=== PATIENT | female | born 1950 | race Caucasian/White ===

== ENCOUNTER → 2018-01-05 | Outpatient (CLI) | payer BC ==
[~2018-01-05] MED LIST: HYDR-4226 PO
--- NOTE | 2018-01-05 13:08 | Diagnostic Imaging Report ---
Indication: Routine screening. Comparison is made with prior mammograms from 01/01/2017 and 12/29/2015. 2-D and 3-D bilateral screening mammography was performed with CAD. Both breasts are heterogeneously dense, limiting the sensitivity of mammography. Intraparenchymal lymph node in the outer left breast appears stable. No new mass or malignant-appearing microcalcifications are seen. The axillae are unremarkable. Impression: BI-RADS category 2 No mammographic features suspicious for malignancy are identified. ACR BI-RADS Category 2: Benign findings. Result letter will be mailed to the patient. Note: At least 10% of breast cancer is not imaged by mammography. Dictated by: Dictated on workstation # [id number]
== END ==
LOC: RAD 08:05
PROVIDERS: ATTEND Nurse Practitioner Family
DX: Z12.31 Encounter for screening mammogram for malignant neoplasm of breast (principal)
CPT/HCPCS: 77067

== ENCOUNTER 2018-01-12 16:05 | Emergency (ER) | payer BC ==
[~2018-01-12] VITALS: Ht 167.6 cm; Wt 65.8 kg
--- NOTE | 2018-01-12 16:24 | ED Lower Extremity ---
General Stated Complaint: L LEG PAIN Source: patient Exam Limitations: no limitations History of Present Illness Date Seen by Provider: Jan 12, 2018 Time Seen by Provider: 16:22 Initial Comments To ER for bruit vehicle from home with reports of left knee pain. This began a few days ago without any known injury. She denies any swelling but the pain became rather severe today, especially worse with bearing weight. Today she also notices increased pain and a tight sensation when she flexes the knee. The sensation of tightness in the back of the knee. She does not notice any swelling. No history of this. Onset: just prior to arrival Severity: moderate Pain/Injury Location: left leg, left knee Method of Injury: unknown Modifying Factors: Worse With Movement Allergies and Home Medications Allergies Coded Allergies: No Known Drug Allergies (Unverified , 08/24/13) Home Medications Hydrocodone/Acetaminophen 1 Each Tablet, 1 EACH PO Q6H PRN for PAIN-MODERATE Prescribed by: PAULA RAMOS on 01/12/18 1700 Patient Home Medication List Home Medication List Reviewed: Yes Review of Systems Constitutional: see HPI EENTM: see HPI Respiratory: no symptoms reported Cardiovascular: no symptoms reported Genitourinary: see HPI Musculoskeletal: see HPI Skin: no symptoms reported Psychiatric/Neurological: No Symptoms Reported Past Fzvihej-Udjjnb-Dlsaaw Hx Patient Social History Recent Foreign Travel: No Contact w/Someone Who Travel: No Physical Exam Vital Signs Vital Signs - First Documented 01/12/18 16:27 Pulse 80 Resp 20 B/P (MAP) 138/90 (106) Pulse Ox 99 O2 Delivery Room Air Capillary Refill : Height, Weight, BMI Height: 5'6.00" Weight: 146lbs. oz. 66.943224sz; BMI Method: General Appearance: WD/WN, no apparent distress HEENT: PERRL/EOMI, normal ENT inspection Neck: non-tender, full range of motion Respiratory: no respiratory distress, no accessory muscle use Hips: bilateral hip non-tender, bilateral hip normal inspection, bilateral hip normal range of motion Legs: bilateral leg non-tender, bilateral leg normal inspection, bilateral leg normal range of motion Knees: left knee pain, left knee other (no palpable swelling, no deformity. No tenderness to palpation.) Ankles: bilateral ankle non-tender, bilateral ankle normal inspection, bilateral ankle normal range of motion Feet: bilateral foot non-tender, bilateral foot normal inspection, bilateral foot normal range of motion Neurologic/Psychiatric: alert, normal mood/affect, oriented x 3 Skin: normal color, warm/dry Progress/Results/Core Measures Results/Orders My Orders Orders - PAULA RAMOS APRN Us Venous Lower Ext Lt (01/12/18 16:09) Knee, Left, 3 Views (01/12/18 16:20) Vital Signs/I&O 01/12/18 16:27 Pulse 80 Resp 20 B/P (MAP) 138/90 (106) Pulse Ox 99 O2 Delivery Room Air Diagnostic Imaging Diagonstic Imaging: Xray, Ultrasound Comments NAME: ADDIS NAVAS [facility] REC#: [id number] PT STATUS: REG ER : 1950 PHYSICIAN: PAULA RAMOS APRN ADMIT DATE: 01/12/18/ER Draft Date of Exam:01/12/18 KNEE, LEFT, 3 VIEWS INDICATION: Left knee pain FINDINGS: No fracture or acute bony abnormality is seen. There is mild superior patellar spurring. There is no overt joint effusion. IMPRESSION: Minor degenerative changes with no acute bony abnormality. Dictated on workstation # [id number] Dict: 01/12/18 1645 Trans: 01/12/18 1647 [facility] [id number] Interpreted by: MORGAN PARISI MD Electronically signed by: Departure Impression Primary Impression: Left knee pain Disposition: 01 HOME, SELF-CARE Condition: Stable Departure-Patient Inst. Decision time for Depature: 16:58 Referrals: MADISON TAYLOR MD (PCP/Family) Primary Care Physician Patient Instructions: Knee Pain Add. Discharge Instructions: 1. Follow-up with Dr. Taylor. Call tomorrow to make an appointment to be seen to discuss obtaining an MRI to further evaluate the cause of your knee tightness and pain. In the meantime, pain medication as needed, ice to the knee, Scripts Hydrocodone/Acetaminophen ([place] 5-325 Tablet) 1 Each Tablet 1 EACH PO Q6H PRN for PAIN-MODERATE MDD 10, #14 TAB Prov: PAULA RAMOS APRN 01/12/18 PAULA RAMOS APRN Jan 12, 2018 16:24
--- NOTE | 2018-01-12 16:48 | Diagnostic Imaging Report ---
INDICATION: Left knee pain FINDINGS: No fracture or acute bony abnormality is seen. There is mild superior patellar spurring. There is no overt joint effusion. IMPRESSION: Minor degenerative changes with no acute bony abnormality. Dictated by: Dictated on workstation # [id number]
[2018-01-12] MEDS ORDERED: HYDR-4226 PO (17:00)
--- NOTE | 2018-01-12 17:04 | Diagnostic Imaging Report ---
PROCEDURE: US left lower extremity venous. TECHNIQUE: Multiple Real-time grayscale images were obtained over the left lower extremity in various projections. Additional duplex Doppler and color Doppler images were also obtained. INDICATION: Left lower extremity pain. COMPARISON STUDIES: None. FINDINGS: The left lower extremity venous Doppler demonstrates normal waveforms. No DVT is present. The greater saphenous vein is patent. There are no fluid collections. IMPRESSION: Normal left lower extremity venous Doppler. Dictated by: Dictated on workstation # [id number]
[2018-01-12 18:06] VITALS: BP 138/90
[2018-01-12] MEDS ORDERED: RX-HYDROCODONE/APAP 5/325 MG #4 TAB PK PO ONE (18:11)
[2018-01-12] MEDS ORDERED: RX-HYDROCODONE/APAP 5/325 MG #4 TAB PK PO PRN (18:15)
== END 2018-01-12 18:12 | disposition home or self-care (01) ==
LOC: EDUNIT# 16:05 → ER 16:06
DX: M25.562 Pain in left knee (principal)
CPT/HCPCS: 73562

== ENCOUNTER → 2018-01-13 | Outpatient (CLI) | payer BC ==
--- NOTE | 2018-01-13 15:46 | Diagnostic Imaging Report ---
PROCEDURE: MRI left joint lower extremity without contrast. TECHNIQUE: Multiplanar, multisequence non contrast-enhanced MRI of the left lower extremity was accomplished. INDICATION: Knee pain. COMPARISON: There are no prior MRI examinations available for comparison. The plain film examination of the left knee performed 01/12/2018 failed to show any sign of an acute abnormality. FINDINGS: On the proton dense sagittal series the anterior and posterior cruciate ligaments appear to be intact. The quadriceps and infrapatellar tendons, the fibular collateral ligament, the biceps femoris tendon and the iliotibial band show no sign of acute injury. However there is edema/inflammation about the medial collateral ligament as it courses by the medial femoral condyle. The MCL may be partially torn in this area. There is also a broad tear involving the posterior horn of the medial meniscus as well as a tear of the anterior horn of the lateral meniscus. There may be a tear of the posterior horn of the lateral meniscus as well. The medial and lateral retinaculum show no sign of an acute abnormality. The knee joint itself is fairly well-maintained. There is mild degenerative disease of the articular surfaces of the femoral condyles. There is no abnormal signal arising from the osseous structures to suggest bone edema related to a fracture. There is a moderate joint effusion present and there is a small Edmonds's cyst. IMPRESSION: 1. There is a partial tear of the medial collateral ligament and both menisci are torn with the medial meniscus the more severely injured. 2. The other major ligaments and tendons are intact. 3. There is no sign of an acute bony abnormality. 4. There is a moderate joint effusion present and a small Edmonds's cyst. Dictated by: Dictated on workstation # [id number]
== END ==
LOC: RAD 12:49
PROVIDERS: ATTEND Nurse Practitioner Family
DX: S83.412A Sprain of medial collateral ligament of left knee, initial encounter (principal); S83.282A Other tear of lateral meniscus, current injury, left knee, initial encounter; S83.242A Other tear of medial meniscus, current injury, left knee, initial encounter; M71.22 Synovial cyst of popliteal space [Baker], left knee
CPT/HCPCS: 73721

== ENCOUNTER → 2019-01-11 | Outpatient (CLI) | payer BC ==
--- NOTE | 2019-01-11 09:49 | Diagnostic Imaging Report ---
INDICATION: Routine screening. Comparison is made with prior mammogram from 01/05/2018 and 01/01/2017. 2-D and 3-D bilateral screening mammography was performed with CAD. Both breasts are heterogeneously dense, limiting the sensitivity of mammography. The parenchymal pattern is stable. No dominant mass or malignant appearing microcalcifications are seen. The axillae are unremarkable. IMPRESSION: BI-RADS Category 1 No mammographic features suspicious for malignancy are identified. Dictated by: Dictated on workstation # [id number]
== END ==
LOC: RAD 07:31
PROVIDERS: ATTEND Nurse Practitioner Family
DX: Z12.31 Encounter for screening mammogram for malignant neoplasm of breast (principal)
CPT/HCPCS: 77067

== ENCOUNTER → 2019-08-13 | Outpatient (CLI) | payer BC ==
--- NOTE | 2019-08-13 12:05 | Diagnostic Imaging Report ---
Right hip at 1158 hours. INDICATION: Hip pain. AP and lateral views were obtained. There are no prior studies available for comparison. FINDINGS: There is no fracture, dislocation or acute bony abnormality evident. However, there is severe degenerative disease involving the hip joint. The joint space is narrowed and there is sclerosis and osteochondral cyst formation involving the opposing surfaces of the femoral head and the acetabulum. The soft tissues are unremarkable. IMPRESSION: 1. There is no evidence for an acute bony abnormality. 2. There is severe degenerative disease of the right hip. Dictated by: Dictated on workstation # [id number]
--- NOTE | 2019-08-13 12:16 | Diagnostic Imaging Report ---
Lumbar spine at 1155 hours. INDICATION: Back pain, right leg pain. AP, lateral and spot lateral views were obtained. There are no prior studies available for comparison. FINDINGS: The lateral view shows the vertebral body heights and alignment to be generally within normal limits. There is narrowing of the disc space at L4-L5 and mild narrowing of the disc spaces at L3-L4 and L5-S1. There is no fracture or acute bony abnormality evident. There is no sign of a paraspinal mass. There is mild symmetrical sclerosis of the sacroiliac joints. Severe degenerative disease of the right hip is again noted. IMPRESSION: 1. There is no evidence for an acute bony abnormality. 2. There is degenerative disc and bony disease involving the lower lumbar spine with the L4-L5 level the most severely affected. 3. If there is clinical concern regarding spinal stenosis or nerve root encroachment, then MRI would be recommended for further evaluation. Dictated by: Dictated on workstation # [id number]
--- NOTE | 2019-08-13 12:19 | Diagnostic Imaging Report ---
Sacrum coccyx at 1156 hours. INDICATION: Pelvic pain. 3 views were obtained. There are no prior studies available for comparison. FINDINGS: There is no fracture, dislocation or acute bony abnormality evident. There is mild degenerative disease of the sacroiliac joints. There is severe degenerative disease of the right hip joint and mild degenerative disease of the left hip joint. The soft tissues are unremarkable. IMPRESSION: 1. There is no evidence for an acute bony abnormality. 2. There is mild degenerative disease of the sacroiliac joints. Dictated by: Dictated on workstation # [id number]
== END ==
LOC: RAD 11:16
PROVIDERS: ATTEND Family Medicine
DX: M16.11 Unilateral primary osteoarthritis, right hip (principal); M47.816 Spondylosis without myelopathy or radiculopathy, lumbar region
CPT/HCPCS: 72100; 72220; 73502

== ENCOUNTER → 2020-01-10 | Outpatient (CLI) | payer BC | LOC: LABNPT 05:29 | PROVIDERS: ATTEND Orthopaedic Surgery | DX: Z01.812 Encounter for preprocedural laboratory examination (principal); Z20.828 Contact with and (suspected) exposure to other viral communicable diseases | CPT/HCPCS: 87635 ==

== ENCOUNTER → 2020-02-21 | Outpatient (CLI) | payer BC ==
--- NOTE | 2020-02-21 13:19 | Diagnostic Imaging Report ---
INDICATION: Routine screening. Comparison is made with prior mammogram from 01/11/2019 and 01/05/2018. 2-D and 3-D bilateral screening mammography was performed with CAD. Both breast are heterogeneously dense, limiting the sensitivity of mammography. The parenchymal pattern is stable. No dominant mass or malignant appearing microcalcifications are seen. The axillae are unremarkable. IMPRESSION: BI-RADS Category 1 No mammographic features suspicious for malignancy are identified. ACR BI-RADS Category 1: Negative. Result letter will be mailed to the patient. Note: At least 10% of breast cancer is not imaged by mammography. Dictated by: Dictated on workstation # [id number]
== END ==
LOC: RAD 09:45
PROVIDERS: ATTEND Nurse Practitioner Family
DX: Z12.31 Encounter for screening mammogram for malignant neoplasm of breast (principal)
CPT/HCPCS: 77063; 77067

== ENCOUNTER → 2020-04-03 | Outpatient (CLI) | payer BC ==
[~2020-04-03] MED LIST changes: +CATHETER FLUSH 10 ML SYR IV PRN; +HOLD METFORMIN - RECEIVED CONTRAST 20 ML VIAL IV SCH; +IOHEXOL 350 MG/ML 100 ML (OMNIPAQUE 350) VIAL IV ONE; +NS 100 ML (IVPB) BAG IV ONE
[2020-04-03 08:12] LABS: ALANINE AMINOTRANSFERASE 16 U/L (0-55); ALBUMIN 4.2 GM/DL (3.2-4.5); ALKALINE PHOSPHATASE 70 U/L (40-136); BILIRUBIN,TOTAL 0.4 MG/DL (0.1-1.0); BUN/CREATININE RATIO 18; CARBON DIOXIDE 23 MMOL/L (21-32); CHLORIDE 107 MMOL/L (98-107); GFR ESTIMATED > 60; GLUCOSE 117 MG/DL (70-105); SODIUM 141 MMOL/L (135-145); TOTAL PROTEIN 7.3 GM/DL (6.4-8.2)
--- NOTE | 2020-04-03 09:17 | Diagnostic Imaging Report ---
PROCEDURE: CT chest with contrast only. TECHNIQUE: Multiple contiguous axial images were obtained through the chest after administration of intravenous contrast. Auto Exposure Controls were utilized during the CT exam to meet ALARA standards for radiation dose reduction. DATE: April 03, 2020. COMPARISON: None. INDICATION: 69-year-old female, history of pulmonary fibrosis. Shortness of breath. FINDINGS: There is very mild pleural parenchymal scarring in the lung apices bilaterally. There is no identified pulmonary nodule. There is no lung mass. There are mild dependent linear opacities in the right and left lower lobes most likely reflecting atelectasis. There is no characteristic peripheral honeycombing. There are no areas of groundglass lung consolidation. There is no bronchiectasis. There is no otherwise noted focal airspace consolidation. The central airways are patent. There is no pneumothorax. There is no pleural effusion. There is no identified central or segmental pulmonary embolus. The main pulmonary artery diameter is within normal limits. The heart is not enlarged. There is no pericardial effusion. There is no identified abnormally enlarged mediastinal, hilar, or axillary lymph node which meets CT size criteria for adenopathy. There is diffuse fatty replacement of the pancreatic parenchyma. There is no identified acute bony abnormality. IMPRESSION: CT CHEST. 1. No identified acute cardiopulmonary abnormality. 2. Mild dependent linear opacities in the lower lobes very likely reflecting atelectasis. 3. No findings to specifically suggest interstitial lung disease. 4. Very mild pleural parenchymal scarring in the lung apices bilaterally. 5. Diffuse fatty replacement of the pancreatic parenchyma. Dictated by: Dictated on workstation # [id number]
== END ==
LOC: RAD 08:45
PROVIDERS: ATTEND Family Medicine
DX: J98.4 Other disorders of lung (principal); K86.89 Other specified diseases of pancreas
CPT/HCPCS: 36415; 71260; 80053; 82103; 85652; 86141

== ENCOUNTER → 2021-02-20 | Outpatient (CLI) | payer BC ==
[~2021-02-20] MED LIST changes: -CATHETER FLUSH 10 ML SYR IV PRN; -HOLD METFORMIN - RECEIVED CONTRAST 20 ML VIAL IV SCH; -IOHEXOL 350 MG/ML 100 ML (OMNIPAQUE 350) VIAL IV ONE; -NS 100 ML (IVPB) BAG IV ONE
--- NOTE | 2021-02-20 09:28 | Diagnostic Imaging Report ---
INDICATION: Postmenopausal state COMPARISON: None available FINDINGS: AP Spine L1-L4: [BMD (g/cm2): 0.874] [T-Score: -2.7] [Z-Score: -1.0] [BMD Previous: na] [BMD % Change: na] LT Hip Neck: [BMD (g/cm2): 0.743] [T-Score: -2.1] [Z-Score: -0.4] LT Hip Total: [BMD (g/cm2):0.779] [T-Score:-1.8] [Z-Score: -0.3] [BMD Previous: na] [BMD % Change: na] RT Hip Neck: [BMD (g/cm2):na] [T-Score:na] [Z-Score:na] RT Hip Total: [BMD (g/cm2):na] [T-score:na] [Z-Score:na] [BMD Previous:na] [BMD % Change:na] *Indicates significant change from prior examination based on 95% confidence level. World Health Organization criteria for BMD interpretation classify patients as Normal (T-score at or above -1.0), Osteopenic (T-score between -1.0 and -2.5) or Osteoporotic (T-score at or below -2.5). LIMITATIONS AND MODIFICATION: The right hip was not evaluated. FRACTURE RISK (FRAX SCORE): The ten year probability of (%): Major Osteoporotic Fracture: [12.1] Hip Fracture: [2.7] IMPRESSION: 1. Osteoporosis. 2. Baseline examination. 3. See below National Osteoporosis Foundation guidelines on when to potentially initiate pharmacologic therapy. Based on the National Osteoporosis Foundation Guidelines, pharmacologic treatment should be initiated in any of the following, unless clinical conditions suggest otherwise: * Any patient with prior fragility fracture of the hip or vertebrae. A spine fracture indicates 5X risk for subsequent spine fracture and 2X risk for subsequent hip fracture. * Osteoporosis (T-score <-2.5). * Postmenopausal women and men age 50 and older with low bone mass/osteopenia (T-score between -1.0 and -2.5) by DXA and 10-year major osteoporotic fracture greater than 20% or a 10-year probability of hip fracture greater than 3%. These fracture risks are supplied above in the FRAX score, if applicable. * Clinician judgement and/or patient preferences may indicate treatment for people with 10-year fracture probabilities above or below these levels. Dictated by: Dictated on workstation # [id number]
== END ==
LOC: RAD 08:30
PROVIDERS: ATTEND Family Medicine
DX: M81.0 Age-related osteoporosis without current pathological fracture (principal); Z78.0 Asymptomatic menopausal state
CPT/HCPCS: 77080

== ENCOUNTER → 2021-02-21 | Outpatient (CLI) | payer BC ==
--- NOTE | 2021-02-21 09:35 | Diagnostic Imaging Report ---
INDICATION: Routine screening. Comparison is made with prior mammogram from 02/21/2020 and 01/11/2019. 2-D and 3-D bilateral screening mammography was performed with CAD. Both breasts are heterogeneously dense, limiting the sensitivity of mammography. No mass or malignant-appearing microcalcific lesions are seen. Axillae are unremarkable. IMPRESSION: BI-RADS Category 1. No mammographic features suspicious for malignancy are identified. ACR BI-RADS Category 1: Negative. Result letter will be mailed to the patient. Note: At least 10% of breast cancer is not imaged by mammography. Dictated by: Dictated on workstation # [id number]
== END ==
LOC: RAD 08:00
PROVIDERS: ATTEND Family Medicine
DX: Z12.31 Encounter for screening mammogram for malignant neoplasm of breast (principal); Z78.0 Asymptomatic menopausal state
CPT/HCPCS: 77063; 77067

== ENCOUNTER → 2022-02-26 | Outpatient (CLI) | payer BC ==
--- NOTE | 2022-02-26 19:46 | Diagnostic Imaging Report ---
Indication: Routine screening. Comparison is made with prior mammograms 02/21/2021 and 02/21/2020. 2-D and 3-D bilateral screening mammography was performed with CAD. Both breasts are heterogeneously dense, limiting the sensitivity of mammography. The parenchymal pattern is stable. No mass or malignant-appearing microcalcifications are seen. Axillae are unremarkable. IMPRESSION: BI-RADS Category 1 No mammographic features suspicious for malignancy are identified. ACR BI-RADS Category 1: Negative. Result letter will be mailed to the patient. Note: At least 10% of breast cancer is not imaged by mammography. Dictated by: Dictated on workstation # [id number]
== END ==
LOC: RAD 15:30
PROVIDERS: ATTEND Nurse Practitioner Family
DX: Z12.31 Encounter for screening mammogram for malignant neoplasm of breast (principal)
CPT/HCPCS: 77063; 77067